=== PATIENT | female | born 1970 | race Caucasian/White ===

== ENCOUNTER 2016-12-11 14:20 | Inpatient (IN) | payer OTHER ==
[~2016-12-11] VITALS: Ht 172.7 cm; Wt 133.8 kg
[2016-12-11] MEDS ORDERED: SERTRALINE HCL100 MG PO (14:57)
[2016-12-11] MEDS ORDERED: LISINOPRIL40 MG PO (14:57)
[2016-12-11] MEDS ORDERED: METOPROLOL SUC200 MG PO (14:57)
[2016-12-11] MEDS ORDERED: CLINDAMYCIN HC300 MG PO (14:57)
[2016-12-11] MEDS ORDERED: HUMALOG100 UNIT/2 SUB-Q (14:57)
[2016-12-11] MEDS ORDERED: TOUJEO SOL300 UNIT/1 SUB-Q (14:58)
[2016-12-11] MEDS ORDERED: FLUCONAZOLE150 MG PO (14:58)
[2016-12-11] MEDS ORDERED: METFORMIN HCL750 MG PO (14:58)
--- OUTSIDE RECORDS SUMMARY | 2016-12-11 15:27 | XMS | Encounter Summary ---
Demographics + + + | Address | [address] | | | [place] [address] | + + + | Home Phone | [phone] | + + + | Preferred Language | Unknown | + + + | Marital Status | | + + + | Yazdanism Affiliation | Unknown | + + + | Race | Unknown | + + + | Ethnic Group | Not or | + + + Author + + + | Author | | + + + | Organization | | + + + | Address | [address] | | | [place] [address] | + + + | Phone | [phone] | + + + Reason for Visit + + | None recorded. | + + Instructions + + | 1. Localized infection of skin AND/OR subcutaneous tissue | + + | CMP, serum or plasma | + + | CBC w/ auto diff | + + | culture, deep wound | + + | clindamycin 900 mg/6 mL intravenous solution | + + | clindamycin 300 mg capsule | + + | 2. Fever | + + | sodium chloride 0.9 % intravenous solution | + + | Zofran ODT 8 mg disintegrating tablet | + + | culture, blood | + + | 3. Dehydration | + + | dehydration: care instructions | + + | 4. Systemic inflammatory response syndrome | + + | Tylenol Extra Strength 500 mg tablet | + + | excuse from work | + + Discussion Note: None recorded. Plan of Care + + + + + | Reminders | | | Provider | | | | | | + + + + + | Appointments | Return to Office | on or around | Ralf Ruiz MD | | | | 12/11/2016 | | + + + + + | Lab | Culture, Blood | 12/10/2016 | [facility] | | | | | Center ([facility]) | + + + + + | | CMP, Serum or | 12/10/2016 | [facility] | | | Plasma | | [place] ([facility]) | + + + + + | | CBC W/ Auto Diff | 12/10/2016 | [facility] | | | | | Center ([facility]) | + + + + + | | Culture, Deep Wound | 12[facility]10/2016 | [facility] | | | | | [place] ([facility]) | + + + + + | Referral | None recorded. | | | + + + + + | Procedures | None recorded. | | | + + + + + | Surgeries | None recorded. | | | + + + + + | Imaging | None recorded. | | | + + + + + Medications + + + + | Name | Start Date | | | | | | + + + + + +---+ | BD Ultra-Fine Betsy Pen Sandoval 32 gauge x | | | " | | + +---+ | clindamycin 300 mg capsule Take 1 capsule | | | every 6 hours by oral route for 10 days. | | + +---+ | clindamycin 900 mg/6 mL intravenous | | | solution Inject 900 mg by intravenous | | | route. see IV flow sheet-ta | | + +---+ | Glucagon Emergency Kit (human-recomb) 1 mg | | | injection | | + +---+ | Humalog KwikPen 100 unit/mL subcutaneous | | | INJECT 20 UNITS UNDER THE SKIN 3 XD | | + +---+ | lisinopril 40 mg tablet | | + +---+ | metformin ER 750 mg tablet,extended | | | release 24 hr | | + +---+ | metoprolol succinate ER 200 mg | | | tablet,extended release 24 hr | | + +---+ | OneTouch Tanesha Lancets 30 gauge | | + +---+ | OneTouch Ultra Test strips | | | USE TO TEST BLOOD GLUCOSE 4 XD | | + +---+ | sertraline 100 mg tablet | | + +---+ | sodium chloride 0.9 % intravenous solution | | | Inject 1000 mL by intravenous route. | | | see IV flow sheet-ta | | + +---+ | Keyonna SoloStar 300 unit/mL (1.5 mL) | | | subcutaneous insulin pen | | + +---+ | Tylenol Extra Strength 500 mg tablet Take | | | 2 tablets every 4 hours by oral route. | | + +---+ | Zofran ODT 8 mg disintegrating tablet | | | Place 1 tablet by translingual route. | | + +---+ Medications Administered + + + + | Name | Date | | + + + + + + + | sodium chloride 0.9 % intravenous solution | [id number]:36:00 | | Inject 1000 mL by intravenous route. | | + + + | Zofran ODT 8 mg disintegrating tablet | [id number]:35:00 | | Place 1 tablet by translingual route. | | + + + | Tylenol Extra Strength 500 mg tabletTake 2 | [id number]:34:00 | | tablets every 4 hours by oral route. | | + + + | clindamycin 900 mg/6 mL intravenous | [id number]:37:00 | | solutionInject 900 mg by intravenous | | | route. | | + + + Vitals + + + + + | Height | Weight | BMI | Blood Pressure | + + + + + | 5 ft 8 in | 297 lbs 8 oz | 45.2 kg/m2 | 162/85 mm[Hg] | + + + + + Lab Results None recorded. Allergies +--------+ + + + +-------+ | Code | Code System | Name | Reaction | Severity | Onset | +--------+ + + + +-------+ | 2670 | RxNorm | Codeine | | | | +--------+ + + + +-------+ | | | Penicillins | | | | +--------+ + + + +-------+ | | | Sulfa | | | | | | | (Sulfonamide | | | | | | | | | | | | | | Antibiotics) | | | | +--------+ + + + +-------+ | | | Tylox | | | | +--------+ + + + +-------+ | [id number] | RxNorm | Vicodin | | | | +--------+ + + + +-------+ Problems None recorded. Procedures + + + + + | Date | Name | Performed by | | | | | | | + + + + + +---+ + + | | Back Surgery | Information not available | +---+ + + | | Colonoscopy | Information not available | +---+ + + | | Sinus Surgery | Information not available | +---+ + + | | Tonsillectomy and | Information not available | | | Adenoidectomy | | +---+ + + Vaccine List None recorded. Social History + + +---+ | Smoking Status | Never Smoker | | + + +---+ Past Encounters + + | 12/10/2016Localized Infection of Skin AND/OR Subcutaneous Tissue; Fever; Dehydration; | | Systemic Inflammatory Response SyndromeRalf Ruiz MD: [address], | | [place] [phone], [place]. | + + History of Present Illness Note:This is a 46-year-old female who is visiting from [facility] to [facility] in the admission department at [facility]. The patient reports that over the course of the last 2 weeks she has had some subjective fevers chills and has develo ped increased redness and discomfort over the left anterior lateral aspect of her chest and breast. She states that she developed increased nausea and vomiting for the last 2 days and has not been taking her normal insulin regimen for the last 4 days. Because of her [facility] fever and nausea and vomiting she was advised to present to our urgent care today.
<di v>
</div><div>Past medical history: #1 hypertension #2 type 2 diabetes, insulin-dependent #3 obesity</div> Review of Systems + + + | | Moderate Male ROS | + + + | Reported By: | Patient | + + + | Constitutional: | Constitutional: fever | + + + | ENMT: | Mouth/Throat: no sore throat. Nose: no | | | nose/sinus problems. Eyes: no ocular | | | discharge. Ears no ear pain | + + + | Cardiovascular: | Cardiovascular: no chest pain, no | | | palpitations | + + + | Respiratory: | Respiratory: no wheezing, no shortness of | | | breath | + + + | Gastrointestinal: | Gastrointestinal: no diarrhea, nausea, | | | vomiting | + + + | Genitourinary: | Genitourinary: no hematuria, no dysuria, | | | no urinary frequency | + + + | Musculoskeletal: | Musculoskeletal: myalgias, | | | arthralgias/joint pain | + + + | Integumentary: | Skin: lesions | + + + | Neurologic: | Neurologic: no headaches | + + + Physical Exam + + + | | General Adult Exam | + + + | Reported By: | Patient | + + + | Eyes: | Eyes: SUZI | + + + | ENMT: | Pharynx: ; dry mucous membranes. | | | Nasopharynx: clear. Throat: throat clear, | | | tonsils normal. Neck: supple, non tender. | | | Nodes: ; no adenopathy | + + + | Cardiovascular: | Heart: regular heart rate, no murmurs | + + + | Lungs: | Chest/Lungs: clear to auscultation | + + + | Abdomen: | Abdomen: soft, nontender, normal bowel | | | sounds | + + + | Skin: | Skin: ; There is an area of induration and | | | erythema over the left anterior lateral | | | chest wall that extends into the left | | | breast. There is no underlying fluctuant | | | mass in the left breast the area of | | | erythema is divided into 2 aspects a more | | | intense indurated area that measures | | | approximately 4-5 cm and a less intense | | | superficial erythema that is tender just | | | lateral as drawn that measures | | | approximately 3-4 cm | + + +
--- NOTE | 2016-12-11 18:17 | NUR ---
PT ARRIVED ON THE FLOOR AT 1727. WOUND UNCOVERED AND RECOVERED. AREA AROUND WOUND IS RED, SWOLLEN, AND SLIGHTLY WARM. ABCESS WAS DRAINED AND PACKED IN ER. HOME MEDICATIONS SENT TO PHARMACY FOR VERIFICATION. PT IS ALERT AND AWAKE IN BED. ALERT AND ORIENTED X4. NO SKIN ISSUES NOTED. PT IS INDEPENDENT IN ROOM. ADA DIET.
--- NOTE | 2016-12-11 19:39 | NUR ---
RECEIVED REPORT FROM DAY SHIFT RN. PATIENT IS RESTING IN BED VISITING WITH FAMILY. PATIENT DENIES ANY PAIN. PATIENT DENIES ANY NEEDS AT THIS TIME. PATIENT IS INDEPENDENT IN THE ROOM. CALL LIGHT IS WITHIN REACH.
--- NOTE | 2016-12-11 22:08 | NUR ---
PATIENT ASSESMENT COMPLETED. PATIENT IS RESTING IN BED VISITING WITH FAMILY. PATIENT DENIES ANY PAIN. PATIENTS DRESSING ON HER ABCESS HAS MINIMAL DRAINAGE AND IS COVERED WITH GAUZE AND TAPE. PATIENT IS REQUESTING TO TAKE HER HOME MEDICATIONS IN THE EVENING RATHER THAN IN THE AM. PATIENTS BLOOD SUGAR IS 393. CALLED HOSPITALIST. HOSPITALIST GAVE NEW VERBAL ORDERS REGARDING PATIENTS BLOOD SUGAR AND HER HOME MEDICATIONS. VERIFIED VERBAL ORDER USING THE READBACK METHOD. WILL PUT NE ORDERS INTO PLACE. ADMINISTERED PATIENTS EVENING MEDICATIONS PER ORDER. PATIENT DENIES ANY FURTHER NEEDS AT THIS TIME
--- NOTE | 2016-12-11 23:54 | NUR ---
PATIENT IS RESTING IN BED WITH EYES CLOSED. BREATHING IS EVEN AND UNLABORED, RR 17. PATIENTS CALL LIGHT IS WITHIN REACH.
--- NOTE | 2016-12-12 02:42 | NUR ---
PATIENTS BLOOD SUGAR REEVALUATED. PATIENTS BLOOD SUGAR IS 168. PATIENT COMPLAINS OF PAIN OF PAIN AT THE ABCESS SITE. PATIENT GIVEN PRN TYLENOL FOR THE PAIN. PATIENT DENIES ANY FURTHER NEEDS AT THIS TIME. CALL LIGHT IS WITHIN REACH.
--- NOTE | 2016-12-12 04:24 | NUR ---
PATIENT S RESTING IN BED ON HER RIGHT SIDE. PATIENTS BREATHING IS EVEN AND UNLABORED.
--- NOTE | 2016-12-12 06:11 | NUR ---
PATIENTS VITALS TAKEN AND RECORDED. PATIENTS BLOOD SUGAR EVALUATED AND IT IS NOW 226. PATIENT GIVEN AN ICE PACK FOR ABCESS. PATIENT REMAINS INDEPENDENT IN THE ROOM. PATIENTS DRESSING REINFORCED WITH GAUZE AND TAPE. PATIENT DENIES ANY NEED. CALL LIGHT IS WITHIN REACH.
--- NOTE | 2016-12-12 06:14 | NUR ---
PATIENT RESTED WELL THROUGHOUT THE SHIFT. PATIENT RECEIVED TYLENOL X1 FOR PAIN. PATIENT IS INDEPENDENT IN THE ROOM AND IS STEADY ON HER FEET. PATIENT HAS A DRESSING APPLIED TO HER ABCESS ON UPPER LEFT SIDE. PATIENTS DRESSING REINFORCED WITH GAUZE AND TAPE FOR DRAINAGE THROUGH THE DRESSING. PATIENT GIVEN AN ICE PACK TO PLACE ON ABCESS FOR COMFORT. PATIENT IS AAOX3. PATIENT IS ON TELE #10 AND HAS BEEN IN NSR WITH HRS IN THE MID 80'S. PATIENT IS ON AN ADA DIET AND IS TOLERATING IT WELL.
--- NOTE | 2016-12-12 07:43 | NUR ---
PATIENT AWAKE RESTING IN BED. I GAVE HER A WARM CLOTH FOR HER FACE. BREAKFAST IS ON THE WAY. PATIENT IS CONTENT AND STATED SHE DID NOT NEED ANYTHING AT THIS TIME. CALL LIGHT IS IN REACH.
--- NOTE | 2016-12-12 10:00 | NUR ---
PATIENT TOLERATED SHOWER WELL. ADMINISTERED PRN TYLENOL FOR DULL ACHE IN SIDE. CBGS STABLE, EATING WELL. PATIENT UP TO RECLINER. ENCOURAGED PATIENT TO WALK IN HALLS. IV FLUIDS CONTINUE TO INFUSE.
--- NOTE | 2016-12-12 10:11 | NUR ---
PATIENT SL FOR SHOWER, TELE DC'D. PATIENT WAS IN A SR WITH PULSE OF 83 AT THAT TIME. NO COMPLAINTS OF PAIN. TOLERATING ACITIVITY WELL.
--- NOTE | 2016-12-12 12:18 | NUR ---
PATIENT KNOWS OF NO BARRIERS TO RETURNING HOME. HAS AND SONS AT HOME TO HELP.
[2016-12-12] MEDS ORDERED: HUMALOG100 UNIT/2 SUB-Q ×2 (12:21→12:22)
--- NOTE | 2016-12-12 12:24 | NUR ---
MED REC COMPLETE--PER PATIENT
--- NOTE | 2016-12-12 13:07 | NUR ---
patient dressing change done at this time, old gauze removed and area cleaned with chloraprep. patient packing strips soaked in saline and packed in the wound in the left axilla, dry gauze placed over the top and silk tape covering gauze.
--- NOTE | 2016-12-12 17:00 | NUR ---
PATIENT UP AMBULATING IN ROOM. SOME COMPLAINTS OF BACK PAIN, HOWEVER STATES " THIS BED IS NOT COMFY". HAS BEEN SPENDING MORE TIME IN RECLINER. FRIENDS VISITED THROUGHOUT DAY. CBG 243, PROVIDED BOLUS AND SLIDING SCALE. DR. BARRY VERBALIZED OKAY TO ADMINISTER T-DAP TOMORROW.
--- NOTE | 2016-12-12 19:33 | NUR ---
RECEIVED REPORT FROM DAY SHIFT RN. PATIENT IS RESTING IN BED WATCHING TV. PATIENT DENIES ANY PAIN AT THIS TIME. PATIENTS IS AT THE BEDSIDE. PATIENT DENIES ANY NEEDS AT THIS TIME. CALL LIGHT IS WITHIN REACH.
--- NOTE | 2016-12-12 21:58 | NUR ---
PATIENT ASSESMENT COMPLETED. PATIENTS EVENING MEDICATIONS GIVEN PER ORDER. PATIENT RATES PAIN AT THE ABCESS SITE AT A 3/10. PATIENT GIVEN PRN TYLENOL AND AN ICE PACK FOR THE PAIN. PATIENT REAMINS INDEPENDENT IN THE ROOM AND IS STEADY ON HER FEET. PATIENT GIVEN SOUP PER REQUEST. PATIENT HAS FAMILY IN THE ROOM. PATIENT DENIES ANY FURTHER NEEDS AT THIS TIME. CALL LIGHT IS WITHIN REACH.
--- NOTE | 2016-12-12 23:48 | NUR ---
PATIENTS IV FLUIDS REPLACED. PATIENT DENIES THE NEED FOR PAIN MEDICAITONS. PATIENT RATES PAIN AT A 2/10. PATIENT DENIES ANY NEEDS AT THIS TIME. CALL LIGHT IS WITHIN REACH.
--- NOTE | 2016-12-13 01:42 | NUR ---
PATIENT IS RESTING IN BED WITH EYES CLOSED, RR18.
--- NOTE | 2016-12-13 02:34 | NUR ---
PATIENTS 0200 MEDICATIONS GIVEN PER ORDER. PATIENT RECEIVED TDAP VACCINATION PER ORDER. PATIENT GIVEN PRN TYLENOL PER ORDER. PATIENT GIVEN AN ICE PACK TO PLACE ON HER ABCESS. PATIENT DENIES ANY FURTHER NEEDS AT THIS TIME. CALL LIGHT IS WITHIN REACH.
--- NOTE | 2016-12-13 04:29 | NUR ---
PATIENT CONTINUES TO REST IN BED ON HER RIGHT SIDE, RR 17
--- NOTE | 2016-12-13 06:24 | NUR ---
PATIENT RESTED WELL THROUGHOUT THE SHIFT. PATIENT IS INDEPENDENT IN THE ROOM. PATIENT IS ON AN ADA DIET W/1800 MARISOL LIMIT. PATIENT RECEIVED TYLENOL X2 FOR PAIN IN ON HER LEFT UPPER SIDE WHERE ABCESS IS LOACATED. PATIENTS ABCESS IS COVERED AND NO NEW DRAINAGE IS NOTED. PATIENT IS AAOX3. PATIENT CALLS APPROPRIATELY.
--- NOTE | 2016-12-13 06:59 | NUR ---
PATIENT GIVEN MORNING MEDICATION PER ORDER. PATIENTS ICE PACK REFILLED. PATIENT DENIES ANY FURTHER NEEDS AT THIS TIME. CALL LIGHT IS WITHIN REACH.
--- NOTE | 2016-12-13 09:45 | NUR ---
PATIENT DRESSING CHANGE DONE AT THIS TIME AFTER SHOWER, AREA CLEANED WITH CHLORAPREP. PATIENT PACKING STRIPS SOAKED IN SALINE WITH IODINE AND PACKED IN THE WOULD IN THE LEFT AXILLA, DRYA GAUZE PLAED OVER THE TOP AND SILK TAPE COVERING GAUZE. PATIENT TOLERATED WELL. ADMINISTERED PRN TYLENOL.
--- NOTE | 2016-12-13 11:49 | NUR ---
PT RESTING IN BED WITH A NUMBER OF VISITORS PRESENT. SHE WAS ALERT AND VERY ORIENTED. SHE SAID SHE NEEDED TO GET BETTER BECAUSE WORK WAS CALLING. SHE ALSO HAS HER SON'S [employer] COMING UP IN A FEW SHORT WKS. I LET HER VISIT, WILL CONTINUE TO FOLLOW
--- NOTE | 2016-12-13 12:55 | NUR ---
PATIENT SITTING UP IN BED, REPORTS NAUSEA. HAS SUBSIDED SINCE EATING LUNCH. PLAN TO DISCHARGE EITHER THIS EVENING OR IN THE MORNING DEPENDING ON HOW PATIENT IS FEELING.
--- NOTE | 2016-12-13 14:30 | NUR ---
PT SLEEPING LEFT UNDISTURBED.
--- NOTE | 2016-12-13 16:30 | NUR ---
PT RESTING IN BED. PT REPORTS PAIN 1/10, HEADACHE, DENIES NEED FOR TYLENOL AT THIS TIME. PT LUNG SOUNDS CLEAR, ON ROOM AIR. BOWEL TONES ACTIVE, DENIES NAUSEA, TOLERATING ADA DIET. PT PULSES PALPABLE, STRONG. PT INDEPENDENT IN ROOM. IV FLUIDS INFUSING NS AT 125 ML/HR, IV CLINDAMYCIN INFUSING. PT DENIES NEEDS AT THIS TIME.
--- NOTE | 2016-12-13 18:03 | NUR ---
PT ALERT/ORIENTED. PT LUNG SOUNDS CLEAR, ON ROOM AIR. PT TOLERATING ADA DIET, BLOOD GLUCOSE 238, RECEING NOVOLOG SS AND 15 UNITS TID. PT NAUSEATED THIS AM, RECEIVED ZOFRAN. PAIN CONTOLLED WITH TYLENOL. DRESSING CHANGE TO L AXILLARY WOUND TODAY. IV FLUIDS INFUSING NS AT 125 ML/HR. PT INDEPENDENT IN ROOM.
--- NOTE | 2016-12-13 19:28 | NUR ---
RECEIVED REPORT FROM DAY SHIFT RN. PATIENT IS RESTING IN RECLINER VISITING WITH FAMILY. PATIENT DENIES ANY NEEDS AT THIS TIME.
--- NOTE | 2016-12-13 22:31 | NUR ---
PATIENT ASSESMENT COMPLETED. PATIENTS EVENING MEDICATION GIVEN PER ORDER. PATIENT GIVEN TYLENOL PER ORDER FOR PAIN AT THE ABCESS SITE. PATIENT ALSO PROVIDED WITH ICE PACK FOR PAIN. PATIENT REMAINS INDEPENDENT IN THE ROOM. PATIENT DENIES ANY NEEDS AT THIS TIME. CALL LIGHT IS WITHIN REACH.
--- NOTE | 2016-12-14 00:07 | NUR ---
PATIENT IS RESTING IN BED WITH EYES CLOSED, RR 18. CALL LIGHT IN REACH.
--- NOTE | 2016-12-14 02:48 | NUR ---
PATIENTS 0200 MEDICATIONS GIVEN PER ORDER. PATIENT DENIES ANY PAIN. PATIENT GIVEN A NEW ICE PACK. PATIENT DENIES ANY NEEDS AT THIS TIME. CALL LIGHT IS WTIHIN REACH.
--- NOTE | 2016-12-14 04:56 | NUR ---
PATIENT IS RESTING IN BED WITH EYES CLOSED, RR 17
--- NOTE | 2016-12-14 05:38 | NUR ---
PATIENT RESTED WELL THROUGHOUT THE SHIFT. PATIENT IS INDEPENDENT IN THE ROOM. PATIENT IS ON AND AD DIET WITH 1800 CALORIE LIMIT AND TOLERATING DIET WELL. PATIENT DENIED ANY NAUSEA THROUGHTOU THE SHIFT. PATIENT RECEIVED TYLENOL X1 FOR PAIN. DRESSING ON ABCESS HAS NO NEW DRAINAGE. PATIENT IS AAOX3 AND CALLS APPROPRIATELY. PATIENT GIVEN ICE PACKS ASSIST WITH PAIN.
--- NOTE | 2016-12-14 06:57 | NUR ---
PATIENTS BLOOD AUGAR TAKEN AND IT IS 189. WILL WAIT UNTIL TRAY IS ON THE FLOOR TO ADMINISTER MORNING INSULIN BOLUS.
--- NOTE | 2016-12-14 08:45 | NUR ---
PATIENT FOUND IN BED SITTING EATING BREAKFAST. REPORTS PAIN AT 1/10. DENIES NAUSEA. SHIFT ASSESSMENT COMPLETE. MORNING MEDS GIVEN. LUNGS CLEAR, BOWEL TONES POSITIVE IN ALL 4 QUADRANTS. WOUND AT THE LEFT AXILLARY, WET WITH SOME DRAINAGE. AREA AROUND THE WOUND RED, WARM AND TENDER TO TOUCH. IV SITE PATENT AND IV ABX INFUSING.
[2016-12-14] MEDS ORDERED: HUMALOG100 UNIT/2 SUB-Q ×3 (11:17→11:18)
[2016-12-14] MEDS ORDERED: TOUJEO SOL300 UNIT/1 SUB-Q ×3 (11:17→11:30)
--- NOTE | 2016-12-14 11:30 | NUR ---
DR ALAN WAS IN TO ROOM TO SEE AND RE-EVALUATE PATIENT. DISCUSS PLAN OF CARE. PLAN TO DC. DRESSING IN THE LEFT AXILAARY CHANGED. PATIENT TOLERATED WELL. WAS EDUCATED ABOUT HOW TO CHANGE DRESSING.
== END 2016-12-14 12:25 | disposition home or self-care (01) | DRG 872 ==
LOC: ED 14:20 → MS 16:40
PROVIDERS: ADMIT Internal Medicine
DX: A41.9 Sepsis, unspecified organism (principal); L02.213 Cutaneous abscess of chest wall; B95.61 Methicillin susceptible Staphylococcus aureus infection as the cause of diseases classified elsewhere; E11.9 Type 2 diabetes mellitus without complications; Z79.4 Long term (current) use of insulin; I10 Essential (primary) hypertension; F39 Unspecified mood [affective] disorder; E66.01 Morbid (severe) obesity due to excess calories; F32.9 Major depressive disorder, single episode, unspecified; R65.10 Systemic inflammatory response syndrome (SIRS) of non-infectious origin without acute organ dysfunction
CPT/HCPCS: 10061; 36415; 71020; 80048; 80053; 83605; 85025; 87040; 90715; 96361; 96365; 96372; 99285; J2405; J3490; J7030

== ENCOUNTER 2017-10-04 23:01 | Emergency (ER) | payer OTHER ==
[~2017-10-04] VITALS: Ht 172.7 cm; Wt 131.1 kg
--- NOTE | ~2017-10-04 | EKG ---
[facility] [address] [place], [place] [address] Draft EKG completed, results pending confirmation PATIENT NAME: ASHWINI LAZCANO Electrocardiogram DATE OF : 74 PHYSICIAN: PRELIMINARY REPORT #: [id number] REPORT IS CONFIDENTIAL AND NOT TO BE RELEASED WITHOUT AUTHORIZATION
[~2017-10-04 23:01] MED LIST: CLINDAMYCIN HC300 MG PO; FLUCONAZOLE150 MG PO; HUMALOG100 UNIT/2 SUB-Q; LISINOPRIL40 MG PO; METFORMIN HCL750 MG PO; METOPROLOL SUC200 MG PO; SERTRALINE HCL100 MG PO; TOUJEO SOL300 UNIT/1 SUB-Q
--- OUTSIDE RECORDS SUMMARY | 2017-10-04 23:26 | XMS | Clinical Summary ---
Demographics + + + | Address | [address] | | | [place] [address] | + + + | Home Phone | | + + + | Preferred Language | Unknown | + + + | Marital Status | | + + + | Adventist Affiliation | Unknown | + + + | Race | Unknown | + + + | Ethnic Group | Unknown | + + + Author + + + | Author | [facility] | + + + | Organization | [facility] | + + + | Address | Unknown | + + + | Phone | Unavailable | + + + Support + + + + + | Name | Relationship | Address | Phone | + + + + + | Hubert Cárdenas | ECON | [address] | | | | | [place] | | | | | [address] | | + + + + + Care Team Providers + +------+ + | Care Operational Risk Manager Name | Role | Phone | + +------+ + | Kevin Curiel DO | PP | | + +------+ + Allergies Not on File Current Medications Not on file Active Problems Not on file Social History + +-------+ +--------+------+ | Tobacco Use | Types | Packs/Day | Years | Date | | | | | Used | | + +-------+ +--------+------+ | Never Assessed | | | | | + +-------+ +--------+------+ + + + | Sex Assigned at | Date Recorded | | | | + + + | Not on file | | + + + Plan of Treatment Not on file Results Not on filefrom Last 3 Months Insurance + +--------+ +------+-------+---------+ | Payer | Benefi | Subscriber | Type | Phone | Address | | | t Plan | ID | | | | | | / | | | | | | | Group | | | | | + +--------+ +------+-------+---------+ | [employer] | FC-NET | xxxxxxxxxxx | | | | | | WORK | | | | | + +--------+ +------+-------+---------+ + +--------+ +--------+ + + | Guarantor Name | Accoun | Relation to | Date | Phone | Billing Address | | | t Type | Patient | of | | | | | | | | | | + +--------+ +--------+ + + | PAMELA CÁRDENAS | Person | Self [birth year] | Home: | [address] | | | al/Fam | | 1969 | [phone] [place] | | | [place] | | [phone] | + +--------+ +--------+ + +"
--- OUTSIDE RECORDS SUMMARY | 2017-10-04 23:26 | XMS | Clinical Summary ---
Demographics + + + | Address | [address] | | | [place] [address] | + + + | Home Phone | | + + + | Preferred Language | Unknown | + + + | Marital Status | Single | + + + | Zoroastrian Affiliation | Unknown | + + + | Race | Unknown | + + + | Ethnic Group | Other Race | + + + Author + + + | Author | [facility] | + + + | Organization | [facility] | + + + | Address | Unknown | + + + | Phone | Unavailable | + + + Care Team Providers + +------+ + | Care Hotel Manager Name | Role | Phone | + +------+ + PP | Unavailable | + +------+ + Source Comments LUCIO is fully live on both [facility] and [facility] Allergies Not on File Current Medications Not [...] | + + + Plan of Treatment + + + + + | Health Maintenance | Due Date | Last Done | Comments | + + + + + | INFLUENZA VACCINE | | | | | (FLU SHOT) | 8 | | | + + + + + Results Not on filefrom Last 3 Months"
--- OUTSIDE RECORDS SUMMARY | 2017-10-04 23:26 | XMS | Clinical Summary ---
Demographics + + + | Address | [address] | | | [place] [address] | + + + | Home Phone | | + + + | Preferred Language | Unknown | + + + | Marital Status | Unknown | + + + | Sikh Affiliation | Unknown | + + + | Race | Unknown | + + + | Ethnic Group | Unknown | + + + Author + + + | Author | [facility] | | | and [facility] | + + + | Organization | [facility] | | | and [facility] | + + + | Address | Unknown | + + + | Phone | Unavailable | + + + Care Team Providers + +------+ + | Care Bark Scaler Name | Role | Phone | + +------+ + PP | Unavailable | + +------+ + Allergies Not on [...] | + + + + + | Vaccine: | | | | | Dtap/Tdap/Td (1 - | 1 | | | | Tdap) | | | | + + + + + | CERVICAL CANCER | | | | | SCREENING (PAP EVERY | 3 | | | | 3 YEARS 21-64 ) | | | | + + + + + | Vaccine: Influenza | | | | | (Season Ended) | 8 | | | + + + + + Results Not on filefrom Last 3 Months"
--- OUTSIDE RECORDS SUMMARY | 2017-10-04 23:26 | XMS | Clinical Summary ---
Demographics + + + | Address | [address] | | | [place] [address] | + + + | Home Phone | | + + + | Preferred Language | Unknown | + + + | Marital Status | Single | + + + | Moravian Affiliation | Unknown | + + + | Race | Unknown | + + + | Ethnic Group | Other Race | + + + Author + + + | Author | [facility] | + + + | Organization | [facility] | + + + | Address | Unknown | + + + | Phone | Unavailable | + + + Care Team Providers + +------+ + | Care Web Analyst Name | Role | Phone | + +------+ + PP | Unavailable | + +------+ + Source Comments LUCIO is fully live on both [facility] and [facility] Allergies Not on File Current Medications Not [...]
--- OUTSIDE RECORDS SUMMARY | 2017-10-04 23:26 | XMS | Clinical Summary ---
Demographics + + + | Address | [address] | | | [place] [address] | + + + | Home Phone | | + + + | Preferred Language | Unknown | + + + | Marital Status | Unknown | + + + | Church Affiliation | Unknown | + + + | Race | Unknown | + + + | Ethnic Group | Unknown | + + + Author + + + | Author | [facility] | | | [facility] | + + + | Organization | [facility] | | | and [place] | + + + | Address | Unknown | + + + | Phone | Unavailable | + + + Care Team Providers + +------+ + | Care Loftsman/Woman Name | Role | Phone | + [...]
--- OUTSIDE RECORDS SUMMARY | 2017-10-04 23:26 | XMS | Clinical Summary ---
Demographics + + + | Address | [address] | | | [place] [address] | + + + | Home Phone | | + + + | Preferred Language | Unknown | + + + | Marital Status | | + + + | Anabaptism Affiliation | Unknown | + + + | Race | Unknown | + + + | Ethnic Group | Unknown | + + + Author + + + | Author | [facility] | + + + | Organization | [facility] | + + + | Address | Unknown | + + + | Phone | Unavailable | + + + Support + + + + + | Name | Relationship | Address | Phone | + + + + + | Hubert Cárdenas | ECON | [address] | | | | | [place] | | | | | [phone] | | + + + + + Care Team Providers + +------+ + | Care Draft Roller Picker Name | Role | Phone | + [...] | | | [place] | | | [phone] | [phone] | + +--------+ +--------+ + +"
--- NOTE | 2017-10-06 06:52 | EKG ---
[facility] [address] [place], [place] [address] Signed Sinus tachycardia Nonspecific T wave abnormality Abnormal ECG When compared with ECG of 04-OCT-2017 23:09, (Unconfirmed) No significant change was found Confirmed by DUKE DE LEON MD ([id number]) on 10/06/2017 6:52:15 AM Electronically Signed By: DUKE DE LEON MD 10/06/17 0652 PATIENT NAME: ASHWINI LAZCANO Electrocardiogram DATE OF : 74 PHYSICIAN: DUKE DE LEON MD REPORT #: [id number] REPORT IS CONFIDENTIAL AND NOT TO BE RELEASED WITHOUT AUTHORIZATION
== END 2017-10-05 02:13 | disposition home or self-care (01) ==
LOC: ED 23:01
DX: R07.9 Chest pain, unspecified (principal); E11.9 Type 2 diabetes mellitus without complications; I10 Essential (primary) hypertension; F32.9 Major depressive disorder, single episode, unspecified; Z79.4 Long term (current) use of insulin; Z88.0 Allergy status to penicillin; Z88.2 Allergy status to sulfonamides; Z88.1 Allergy status to other antibiotic agents; Z88.5 Allergy status to narcotic agent; Z79.899 Other long term (current) drug therapy
CPT/HCPCS: 71045; 80053; 84484; 85025; 93005; 93010; 99284

== ENCOUNTER 2023-03-06 20:38 | Emergency (ER) | payer OTHER ==
[~2023-03-06] VITALS: Ht 172.7 cm; Wt 108.0 kg
--- OUTSIDE RECORDS SUMMARY | ~2023-03-06 | XMS | Continuity of Care Document ---
Demographics + + + | Address | [address] | | | [place] [address] | + + + | Preferred Language | Unknown | + + + | Marital Status | | + + + | Congregational Affiliation | Unknown | + + + | Race | White | + + + | Ethnic Group | Unknown | + + + Author + + + | Author | [facility] | + + + | Organization | [facility] | + + + | Address | [address] | | | [place] [address] | + + + | Phone | | + + + Care Team Providers + + + + | Care Costuming Supervisor Name | Role | Phone | + + + + Unavailable | Unavailable | + + + + Allergies No information. Encounters No information. Functional Status No information. Immunizations No information. Medications No information. Problems + + + + | date | description | facility | + + + + | 2023-01-08 13:55 | [facility]OUNTER FOR OTHER | [facility] | | | PREPROCEDURAL EXAMIN | | + + + + | 2023-01-08 13:55 | [facility]OUNTER FOR OTHER | [facility] | | | PREPROCEDURAL EXAMINATION | | + + + + | 2023-01-08 14:00 | [facility]NCOUNTER FOR OTHER | [facility] | | | PREPROCEDURAL EXAMIN | | + + + + Procedures No information. Results/Labs +--------+--------+ +---------+--------+---------+ | test | date | facility | value | unit | notes | +--------+--------+ +---------+--------+---------+ + + | Result panel 1 | + + + + + +-------+ + + | ESTIMATED | 2022-12-25 | [facility] | >60 | ml/min/1.73 | (missing) | | GFR (CALC) | 15:22:57 | [facility] | | m2 | | | | | [facility] | [facility] | | | | | [facility] | | | | + + + +-------+ + + | ESTIMATED | 2022-12-25 | [facility] | >60 | ml/min/1.73 | | | GFR (CALC) | 15:22:57 | [facility] | | m2 | | | | | [facility] | | | | | | | CENTER | | | | + + + +-------+ + + Social History +--------+ + + | date | description | facility | +--------+ + + Vital Signs No information."
--- OUTSIDE RECORDS SUMMARY | ~2023-03-06 | XMS | Continuity of Care Document ---
Demographics + + + | Address | [address] | | | [place] [address] | + + + | Preferred Language | Unknown | + + + | Marital Status | | + + + | Scientology Affiliation | Unknown | + + + | Race | White | + + + | Ethnic Group | Unknown | + + + Author + + + | Author | [facility] | + + + | Organization | [facility] | + + + | Address | [address] | | | [place] [address] | + + + | Phone | | + + + Care Team Providers + + + + | Care Administrative Hearing Officer Name | Role | Phone | + [...]
[2023-03-06] MEDS ORDERED: METOPROLOL SUCC50 MG PO (20:56)
[2023-03-06] MEDS ORDERED: HUMULIN R500 UNIT/2 SQ (20:57)
[2023-03-06] MEDS ORDERED: CRESTOR40 MG NG (20:57)
[2023-03-06 21:10] LABS: BASOPHILS 0.5 % (0-2); EOSINOPHILS 1.5 % (0-6); HEMATOCRIT 45.8 % (35.0-50.0); HEMOGLOBIN 15.2 g/dL (12.0-18.0); LYMPHOCYTES 61.3 % (24-44); MCH 28.3 (27-36); MCHC 33.2 g/dl (30-36); MCV 85.3 fl (81-99); MONOCYTES 6.4 % (0-12); NEUTROPHILS 30.3 % (39-80); PLATELET COUNT 168 K/uL (140-440); RBC 5.37 M/ul (4.3-5.7); RDW 12.9 (10.5-15.0)
[2023-03-06 21:12] LABS: ALBUMIN 3.8 g/dL (3.4-5.0); ALBUMIN/GLOBULIN RATIO 0.97 (1.1-2.4); ANION GAP 16.5 (7-21); BILIRUBIN, TOTAL 0.4 ng/dL (0.2-1.0); BUN/CREATININE RATIO 15.94 (6.0-28.6); CALCIUM 9.5 mg/dL (8.5-10.1); CREATININE, SERUM 0.69 mg/dL (0.55-1.02); POTASSIUM 3.5 mmol/L (3.5-5.1); PROTEIN, TOTAL 7.7 g/dL (6.4-8.2)
[2023-03-06 22:18] LABS: BILIRUBIN, URINE POSITIVE (negative); BLOOD/HGB, URINE NEGATIVE (Negative); KETONE, URINE SMALL (Negative); LEUK ESTERASE, URINE NEGATIVE (negative); NITRITE, URINE NEGATIVE (negative)
[2023-03-06 22:26] LABS: BACTERIA, URINE NONE SEEN /hpf (negative); CASTS, URINE NONE SEEN \\lpf; COLLECTION TYPE, URINE CLEAN CATCH; CRYSTALS, URINE NONE SEEN (0-1+); EPITHELIAL CELLS, URINE NONE SEEN /lpf (0-1+); REFLEX CULTURE, URINE No (No)
[2023-03-06 22:42] VITALS: BP 115/57
== END 2023-03-06 22:40 | disposition home or self-care (01) ==
LOC: ED 20:38
PROVIDERS: Internal Medicine
DX: R10.13 Epigastric pain (principal); R10.10 Upper abdominal pain, unspecified; E11.9 Type 2 diabetes mellitus without complications; I10 Essential (primary) hypertension; Z88.0 Allergy status to penicillin; Z88.2 Allergy status to sulfonamides; Z88.1 Allergy status to other antibiotic agents; Z88.5 Allergy status to narcotic agent; Z79.899 Other long term (current) drug therapy; Z79.4 Long term (current) use of insulin
CPT/HCPCS: 36415; 71045; 74177; 80053; 81001; 83690; 83735; 84703; 85025; 96375; 99284-25; C9113; J1170; J2405; Q9967